=== PATIENT | male | born 1985 | race Caucasian/White ===

== ENCOUNTER 2020-08-01 21:54 | Emergency (ER) | payer OTHER ==
[~2020-08-01] VITALS: Ht 177.8 cm; Wt 86.2 kg
[2020-08-01] MEDS ORDERED: BENADRYL (22:16)
== END 2020-08-02 08:10 | disposition home or self-care (01) ==
LOC: ER 21:54
DX: R00.2 Palpitations (principal); T43.625A Adverse effect of amphetamines, initial encounter; Z03.818 Encounter for observation for suspected exposure to other biological agents ruled out